=== PATIENT | female | born 1995 | race Caucasian/White ===

== ENCOUNTER 2017-04-02 07:56 | Emergency (ER) | payer MEDICAID, OTHER ==
[2017-04-02] MEDS ORDERED: Sodium Chloride 0.9% 1,000 ML IV ONE (08:32)
[2017-04-02] MEDS ORDERED: Ketorolac 30 MG/ML SDV IVPUSH ONE (08:32)
[2017-04-02] MEDS ORDERED: Ondansetron 4 MG in Sodium Chloride 0.9% 50 ML IV ONE (08:32)
[2017-04-02] MEDS ORDERED: diphenhydrAMINE 50 MG/ML SDV IVPUSH ONE (08:32)
--- NOTE | 2017-04-02 08:39 | EDM.PDOC ---
ED HPI GENERAL MEDICAL PROBLEM - General Stated Complaint: MIGRAINE Time Seen by Provider: 04/02/17 08:25 Source of Information: Reports: Patient History Limitations: Reports: No Limitations - History of Present Illness INITIAL COMMENTS - FREE TEXT/NARRATIVE: Patient presents with headache for the last 7 hours. This is similar to previous migraines although she doesn't get them very often. The last one this bad was four years ago. She hasn't had any migraine meds. No vision changes. Nausea but no vomiting. - Related Data Allergies Allergy/AdvReac Type Severity Reaction Status Date / Time No Known Drug Allergies Allergy Cannot Verified 04/02/17 08:41 Remember Home Meds: Home Meds Etonogestrel [Nexplanon] 1 device IDERM ONETIME 01/22/16 [History] Past Medical History - Past Health History Medical/Surgical History: Denies Medical/Surgical History Social & Family History - Tobacco Use Smoking Status *Q: Unknown Ever Smoked - Recreational Drug Use Recreational Drug Use: No ED ROS GENERAL - Review of Systems Review Of Systems: See Below Constitutional: Denies: Fever, Chills, Weakness HEENT: Denies: Ear Pain, Vision Change Respiratory: Denies: Shortness of Breath Cardiovascular: Denies: Chest Pain, Lightheadedness, Syncope GI/Abdominal: Reports: Nausea. Denies: Vomiting Musculoskeletal: Reports: Neck Pain (the headache started in the back of the neck and moved up to frontal) Skin: Denies: Cyanosis, Jaundice, Mottled, Pallor, Diaphoresis Neurological: Reports: Headache. Denies: Confusion, Dizziness, Seizure, Syncope Psychiatric: Denies: Agitation, Anxiety, Confusion - Physical Exam Exam: See Below Exam Limited By: No Limitations General Appearance: Alert, WD/WN, No Apparent Distress Eye Exam: Bilateral Eye: EOMI, Normal Inspection, PERRL Ears: Normal External Exam, Hearing Grossly Normal Nose: Normal Inspection, No Blood Throat/Mouth: Normal Inspection, Normal Lips, Normal Oropharynx, Normal Voice, No Airway Compromise Head Exam: Atraumatic, Normocephalic Neck: Normal Inspection, Supple, Non-Tender, Full Range of Motion Respiratory/Chest: No Respiratory Distress, Lungs Clear, Normal Breath Sounds Cardiovascular: Regular Rate, Rhythm, No Murmur Neuro Exam (Abbreviated): Alert, Oriented, Normal Cognition, No Motor/Sensory Deficits Extremities: Normal Range of Motion Psychiatric: Normal Affect, Normal Mood Skin Exam: Warm, Dry, Intact, Normal Color, No Rash Course - Vital Signs Last Recorded V/S: Last Vital Signs Temp 98.0 F 04/02/17 09:20 Pulse 86 04/02/17 09:20 Resp 18 04/02/17 09:20 BP 108/52 L 04/02/17 09:20 Pulse Ox 100 04/02/17 09:20 - Orders/Labs/Meds Meds: Medications Discontinued Medications Generic Name Dose Route Start Last Admin Trade Name Yamil PRN Reason Stop Dose Admin Diphenhydramine HCl 50 mg 04/02/17 08:32 04/02/17 09:03 Benadryl IVPUSH 04/02/17 08:33 50 mg ONETIME ONE Administration Ondansetron HCl 4 mg/ Sodium 52 mls @ 200 mls/hr 04/02/17 08:32 Chloride IV 04/02/17 08:49 ONETIME ONE Sodium Chloride 1,000 mls @ 999 mls/hr 04/02/17 08:32 04/02/17 09:06 Normal Saline IV 04/02/17 09:32 999 mls/hr .BOLUS ONE Administration Ketorolac Tromethamine 30 mg 04/02/17 08:32 04/02/17 08:59 Toradol IVPUSH 04/02/17 08:33 30 mg ONETIME ONE Administration Ondansetron HCl 4 mg 04/02/17 08:42 04/02/17 09:17 Zofran IVPUSH 04/02/17 08:43 4 mg ONETIME ONE Administration - Re-Assessments/Exams Free Text/Narrative Re-Assessment/Exam: 04/02/17 10:15 Patient states pain is completely gone. She is tired and will go home and try to sleep since she didn't get much last night. Discussed recommendations. Patient discharged in stable condition. Departure - Departure Time of Disposition: 10:12 Disposition: Home, Self-Care 01 Condition: Good Clinical Impression: Migraine Qualifiers: Migraine type: without aura Status migrainosus presence: without status migrainosus Intractability: intractable Qualified Code(s): G43.019 - Migraine without aura, intractable, without status migrainosus - Discharge Information Instructions: Recurrent Migraine Headache, [id number] Referrals: PCP,None [Primary Care Provider] - Additional Instructions: 1. Go home and try to get 8 hours of rest. 2. No driving for 8 hours. 3. Follow up with PCP as needed. 4. Return to ER if worsening and PCP unavailable.
[2017-04-02] MEDS ORDERED: Ondansetron 4 MG/2 ML SDV IVPUSH ONE (08:42)
[2017-04-02 09:22] VITALS: BP 108/52
== END 2017-04-02 10:27 | disposition home or self-care (01) ==
LOC: KA.ED 07:56
DX: G43.019 Migraine without aura, intractable, without status migrainosus (principal)
CPT/HCPCS: 96361; 96374; 96375; 99283; J1200; J1885; J2405; J7030